=== PATIENT | male | born 1940 | race Caucasian/White ===

== ENCOUNTER → 2020-09-20 | Emergency (ER) | payer MEDICARE, OTHER ==
[~2020-09-20] VITALS: Ht 182.9 cm; Wt 77.0 kg
[2020-09-20 10:50] VITALS: BP 123/78
== END | disposition home or self-care (01) ==
LOC: ER 10:33
DX: S52.514A Nondisplaced fracture of right radial styloid process, initial encounter for closed fracture (principal); S50.311A Abrasion of right elbow, initial encounter; M25.531 Pain in right wrist; W01.0XXA Fall on same level from slipping, tripping and stumbling without subsequent striking against object, initial encounter; Y93.89 Activity, other specified; Y92.89 Other specified places as the place of occurrence of the external cause; Y99.8 Other external cause status
CPT/HCPCS: 29125; 73090; 99283